=== PATIENT | female | born 1950 | race African-American/Black ===

== ENCOUNTER 2020-10-20 04:40 | Day surgery (SDC) | payer OTHER ==
[2020-10-19 10:37] VITALS: BMI 35.5
[~2020-10-20 04:40] MED LIST: ACETAMINOPHEN 325 MG TABLET (FP) PO PRN; CHONDROITIN SU A/HYALUR SOD 1 KIT IO ONE; EPINEPHrine/PF 1 MG/1 ML (1:1,000) AMPULE IM ONE; LIDOCAINE HCL 1% PRESERVATIVE FREE - 30ML VIAL IO ONE; TRYPAN BLUE 0.5 ML DISP.SYRIN IO ONE
[2020-10-20 08:40] VITALS: TEMP 97.8
[2020-10-20] MEDS ORDERED: TROPICAMIDE 1% OPHTH SOLN 15 ML BOTTLE ONE (08:51)
[2020-10-20] MEDS ORDERED: KETOROLAC TROMETHAMINE 0.5% EYE DROP 1 DROP DROPS ONE (08:51)
[2020-10-20] MEDS ORDERED: OFLOXACIN 0.3% OPHTHALMIC SOLUTION 5 ML BOTTLE ONE (08:51)
[2020-10-20] MEDS ORDERED: CYCLOPENTOLATE HCL 1% OPHTH SOLN 2 ML BOTTLE ONE (08:52)
[2020-10-20] MEDS: KETOROLAC TROMETHAMINE 0.5% EYE DROP 1 DROP DROPS OP SCH ×3 (08:59→09:40)
[2020-10-20] MEDS: CYCLOPENTOLATE HCL 1% OPHTH SOLN 2 ML BOTTLE OP SCH ×3 (08:59→09:40)
[2020-10-20] MEDS: OFLOXACIN 0.3% OPHTHALMIC SOLUTION 5 ML BOTTLE OP SCH ×3 (08:59→09:40)
[2020-10-20] MEDS: PHENYLEPHRINE 2.5% OPHTH SOLN 15 ML BOTTLE OP SCH ×3 (09:00→09:40)
[2020-10-20] MEDS: TROPICAMIDE 1% OPHTH SOLN 15 ML BOTTLE OP SCH ×3 (09:00→09:40)
[2020-10-20] MEDS ORDERED: MIDAZOLAM HCL 2 MG/2 ML SINGLE DOSE VIAL ONE (10:15)
[2020-10-20] MEDS ORDERED: PROPOFOL 20 ML ONE (10:18)
[2020-10-20] MEDS ORDERED: LIDOCAINE HCL/PF 2% SDV 5ML VIAL PNB ONE ×4 (10:22→10:24)
[2020-10-20] MEDS ORDERED: BUPIVACAINE HCL/PF 0.75% 10 ML VIAL PNB ONE ×2 (10:22→10:24)
[2020-10-20] MEDS ORDERED: LIDOCAINE HCL 1% PRESERVATIVE FREE - 30ML VIAL IO ONE (10:28)
[2020-10-20] MEDS ORDERED: TRYPAN BLUE 0.5 ML DISP.SYRIN IO ONE (10:29)
[2020-10-20] MEDS ORDERED: EPINEPHrine/PF 1 MG/1 ML (1:1,000) AMPULE IM ONE (10:29)
[2020-10-20] MEDS ORDERED: CHONDROITIN SU A/HYALUR SOD 1 KIT IO ONE (10:29)
[2020-10-20] MEDS ORDERED: LACTATED RINGERS SOLUTION 1,000 ML IV SCH ×2 (10:30→13:45)
[2020-10-20] MEDS ORDERED: ONDANSETRON 4 MG/2 ML VIAL IVPUSH PRN ×2 (10:30→13:43)
[2020-10-20] MEDS ORDERED: CHONDROITIN SU A/HYALUR SOD 1 KIT ONE (10:32)
[2020-10-20] MEDS ORDERED: LIDOCAINE HCL/PF 2% SDV 5ML VIAL ONE (10:34)
[2020-10-20] MEDS ORDERED: TRYPAN BLUE 0.5 ML DISP.SYRIN ONE (10:34)
[2020-10-20] MEDS ORDERED: EPINEPHrine/PF 1 MG/1 ML (1:1,000) AMPULE ONE (10:34)
[2020-10-20] MEDS ORDERED: TETRACAINE 0.5% OPHTH SOLN 2 ML BOTTLE ONE (10:34)
[2020-10-20] MEDS ORDERED: BUPIVACAINE HCL/PF 0.75% 10 ML VIAL ONE (10:34)
[2020-10-20] MEDS ORDERED: LIDOCAINE HCL/PF 1% SDV 5ML VIAL ONE (10:34)
[2020-10-20 11:58] VITALS: BP 128/77; PULSE 93
[2020-10-20] MEDS ORDERED: ACETAMINOPHEN 325 MG TABLET (FP) PO PRN (13:43)
== END 2020-10-20 12:15 | disposition home or self-care (01) ==
LOC: JASU-SURG 04:40
PROVIDERS: ATTEND Ophthalmology
PROC: 08RJ3JZ Replacement of Right Lens with Synthetic Substitute, Percutaneous Approach (ICD-10-PCS; principal; 2020-10-20 10:00)
DX: H26.8 Other specified cataract (principal); I10 Essential (primary) hypertension; E11.9 Type 2 diabetes mellitus without complications
CPT/HCPCS: 82962

== ENCOUNTER 2020-11-03 04:44 | Day surgery (SDC) | payer OTHER ==
[2020-11-02 11:17] VITALS: BMI 35.5
[~2020-11-03 04:44] MED LIST changes: -ACETAMINOPHEN 325 MG TABLET (FP) PO PRN; +BSS (NA/CA/MG/K) BALANCED SALT SOLUTION OPHTH SOLN 15 ML BOTTLE OS ONE; -EPINEPHrine/PF 1 MG/1 ML (1:1,000) AMPULE IM ONE; +EPINEPHrine/PF 1 MG/1 ML (1:1,000) AMPULE SQ ONE; +POVIDONE-IODINE 5% OPHTHALMIC PREP 30 ML SOLUTION OS ONE
[2020-11-03] MEDS ORDERED: LIDOCAINE HCL/PF 1% SDV 5ML VIAL ONE (07:23)
[2020-11-03] MEDS ORDERED: EPINEPHrine/PF 1 MG/1 ML (1:1,000) AMPULE ONE (07:23)
[2020-11-03] MEDS ORDERED: BSS (NA/CA/MG/K) BALANCED SALT SOLUTION OPHTH SOLN 15 ML BOTTLE ONE (07:23)
[2020-11-03] MEDS ORDERED: POVIDONE-IODINE 5% OPHTHALMIC PREP 30 ML SOLUTION ONE (07:23)
[2020-11-03] MEDS ORDERED: TRYPAN BLUE 0.5 ML DISP.SYRIN ONE (07:23)
[2020-11-03] MEDS ORDERED: CHONDROITIN SU A/HYALUR SOD 1 KIT ONE (07:28)
[2020-11-03] MEDS ORDERED: TETRACAINE 0.5% OPHTH SOLN 2 ML BOTTLE ONE (07:49)
[2020-11-03] MEDS ORDERED: PHENYLEPHRINE 2.5% OPHTH SOLN 15 ML BOTTLE OP SCH (09:00)
[2020-11-03] MEDS ORDERED: TROPICAMIDE 1% OPHTH SOLN 15 ML BOTTLE OP SCH (09:00)
[2020-11-03] MEDS ORDERED: CYCLOPENTOLATE HCL 1% OPHTH SOLN 2 ML BOTTLE OP SCH (09:00)
[2020-11-03] MEDS ORDERED: OFLOXACIN 0.3% OPHTHALMIC SOLUTION 5 ML BOTTLE OP SCH (09:00)
[2020-11-03] MEDS ORDERED: KETOROLAC TROMETHAMINE 0.5% EYE DROP 1 DROP DROPS OP SCH (09:00)
[2020-11-03] MEDS ORDERED: KETOROLAC TROMETHAMINE 0.5% EYE DROP 1 DROP DROPS ONE (10:12)
[2020-11-03] MEDS ORDERED: OFLOXACIN 0.3% OPHTHALMIC SOLUTION 5 ML BOTTLE ONE (10:12)
[2020-11-03] MEDS ORDERED: CYCLOPENTOLATE HCL 1% OPHTH SOLN 2 ML BOTTLE ONE (10:12)
[2020-11-03] MEDS ORDERED: CYCLOPENTOLATE HCL 1% OPHTH SOLN 2 ML BOTTLE OS ONE ×3 (10:25→10:35)
[2020-11-03] MEDS ORDERED: TROPICAMIDE 1% OPHTH SOLN 15 ML BOTTLE OS ONE ×3 (10:25→10:35)
[2020-11-03] MEDS ORDERED: PHENYLEPHRINE 2.5% OPHTH SOLN 15 ML BOTTLE OS ONE ×3 (10:25→10:35)
[2020-11-03] MEDS ORDERED: KETOROLAC TROMETHAMINE 0.5% EYE DROP 1 DROP DROPS OS ONE ×3 (10:25→10:35)
[2020-11-03] MEDS ORDERED: OFLOXACIN 0.3% OPHTHALMIC SOLUTION 5 ML BOTTLE OS ONE ×3 (10:25→10:35)
[2020-11-03] MEDS ORDERED: LIDOCAINE HCL/PF 2% SDV 5ML VIAL ONE (11:49)
[2020-11-03] MEDS ORDERED: BUPIVACAINE HCL/PF 0.75% 10 ML VIAL ONE (11:49)
[2020-11-03] MEDS ORDERED: PROPOFOL 20 ML ONE ×2 (11:58)
[2020-11-03] MEDS ORDERED: KETOROLAC TROMETHAMINE 30 MG/1 ML VIAL ONE (11:58)
[2020-11-03] MEDS ORDERED: LIDOCAINE HCL/PF 2% SDV 5ML VIAL INF ONE (12:05)
[2020-11-03] MEDS ORDERED: BUPIVACAINE HCL/PF 0.75% 10 ML VIAL NR ONE (12:05)
[2020-11-03] MEDS ORDERED: POVIDONE-IODINE 5% OPHTHALMIC PREP 30 ML SOLUTION OS ONE (12:14)
[2020-11-03] MEDS ORDERED: CHONDROITIN SU A/HYALUR SOD 1 KIT IO ONE (12:16)
[2020-11-03] MEDS ORDERED: LIDOCAINE HCL 1% PRESERVATIVE FREE - 30ML VIAL IO ONE (12:16)
[2020-11-03] MEDS ORDERED: BSS (NA/CA/MG/K) BALANCED SALT SOLUTION OPHTH SOLN 15 ML BOTTLE OS ONE (12:16)
[2020-11-03] MEDS ORDERED: TRYPAN BLUE 0.5 ML DISP.SYRIN IO ONE (12:17)
[2020-11-03] MEDS ORDERED: HYALURONATE SODIUM 23 MG/1 ML SYRINGE IO ONE (12:24)
[2020-11-03] MEDS ORDERED: EPINEPHrine/PF 1 MG/1 ML (1:1,000) AMPULE SQ ONE (12:27)
[2020-11-03 13:41] VITALS: TEMP 97.6
[2020-11-03 13:49] VITALS: BP 130/65; PULSE 74
== END 2020-11-03 13:40 | disposition home or self-care (01) ==
LOC: JASU-SURG 04:44
PROVIDERS: ATTEND Ophthalmology
PROC: 08RK3JZ Replacement of Left Lens with Synthetic Substitute, Percutaneous Approach (ICD-10-PCS; principal; 2020-11-03 12:00)
DX: H25.092 Other age-related incipient cataract, left eye (principal); I10 Essential (primary) hypertension; E11.9 Type 2 diabetes mellitus without complications
CPT/HCPCS: 82962